=== PATIENT | male | born 1960 | race Hispanic/Latino ===

== ENCOUNTER → 2023-07-17 13:39 | Outpatient (REF) | payer OTHER, SELFPAY | LOC: HWRAD 13:39 | PROVIDERS: ATTENDING PHYSICIAN Student in an Organized Health Care Education/Training Program | DX: R60.0 Localized edema (principal) | CPT/HCPCS: 93970 ==

== ENCOUNTER 2023-08-24 06:35 | Day surgery (SDC) | payer OTHER, SELFPAY ==
[2023-08-23 07:53] VITALS: BMI 38.1
[2023-08-24] VITALS (9 sets, daily range): BP systolic 126–143; BP diastolic 75–101; BMI 38.1
[2023-08-24] MEDS: TYLENOL 1000 MG PO (12:24)
[2023-08-24] MEDS: CELEBREX 200 MG PO (12:24)
[2023-08-24] MEDS: NORMOSOL-R 1000 IV (12:25)
== END 2023-08-24 15:35 | disposition home or self-care (01) ==
LOC: SDS 06:35
PROVIDERS: ATTENDING PHYSICIAN Orthopaedic Surgery; FAMILY PHYSICIAN Family Medicine; OTHER PHYSICIAN Student in an Organized Health Care Education/Training Program
DX: S83.232A Complex tear of medial meniscus, current injury, left knee, initial encounter (principal); S83.272A Complex tear of lateral meniscus, current injury, left knee, initial encounter; X50.0XXA Overexertion from strenuous movement or load, initial encounter; X50.9XXA Other and unspecified overexertion or strenuous movements or postures, initial encounter; Y93.H1 Activity, digging, shoveling and raking
CPT/HCPCS: 29880; 36415; 93005

== ENCOUNTER → 2023-11-30 10:46 | Outpatient (REF) | payer OTHER, SELFPAY | LOC: HWRAD 10:46 | PROVIDERS: ATTENDING PHYSICIAN Student in an Organized Health Care Education/Training Program | DX: R59.0 Localized enlarged lymph nodes (principal) | CPT/HCPCS: 74177; Q9967 ==

== ENCOUNTER → 2024-01-04 06:53 | Outpatient (REF) | payer OTHER, SELFPAY | LOC: RCS 06:53 | PROVIDERS: ATTENDING PHYSICIAN Internal Medicine Cardiovascular Disease; FAMILY PHYSICIAN Student in an Organized Health Care Education/Training Program | DX: I10 Essential (primary) hypertension (principal); Z86.79 Personal history of other diseases of the circulatory system | CPT/HCPCS: 93306 ==

== ENCOUNTER → 2024-02-22 11:07 | Outpatient (REF) | payer OTHER, SELFPAY | LOC: RAD 11:07 | PROVIDERS: ATTENDING PHYSICIAN Student in an Organized Health Care Education/Training Program | DX: I87.2 Venous insufficiency (chronic) (peripheral) (principal) | CPT/HCPCS: 93922; 93925 ==

== ENCOUNTER 2024-05-15 23:21 | Inpatient (IN) | payer OTHER, SELFPAY ==
[2024-05-15] VITALS (9 sets, daily range): BP systolic 114–154; BP diastolic 63–117
[2024-05-15 19:10] LABS: Glucose - Point of Care 111 mg/dl (70-99)
--- NOTE | 2024-05-15 19:38 | ED.GENMED ---
History of Present Illness
General
Chief Complaint: Change in Mental Status
Source: patient
Exam Limitations: none
Time Seen by Provider: 05/15/24 19:18
Nursing documentation reviewed up to this point in time: agreed with
History of Present Illness
History of Present Illness:
Patient presents to ED secondary to 5-day history of continual confusion, slow speech, and decreased appetite, after increasing his dose of Mounjaro medication, which started 3 months ago secondary to diabetes. Patient has lost approximately 20
pounds of weight since then. Denies headache. Denies dizziness. Denied blurred vision. Denies loss of sensation or weakness. Denies chest pain. Denies abdominal pain. Patient has had intermittent bouts of diarrhea and constipation since
starting new medication.
Past History
Past History
ED Past Medical History: GERD, HTN, Other (Rheumatoid arthritis) and Other (Sleep apnea)
ED Past Surgical History: Other (Toenail removal)
Social History
Tobacco: Non-smoker
Alcohol: Occasional
Drug: None
Personal:
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
Review of Systems
Review of Systems
Allergies reviewed?: Yes
All Other Systems: ROS reviewed and negative except as documented in HPI and ROS
Constitutional: Reports no symptoms
EENT: Reports no symptoms
Respiratory: Reports no symptoms
Cardiac: Reports no symptoms
ABD/GI: Reports no symptoms
Musculoskeletal: Reports no symptoms
Skin: Reports no symptoms
Neurological: Reports weakness and other (confusion)
Phy Exam
Physical Exam
Physical Exam:
Physical Exam
General: no apparent distress, not acutely ill. afebrile
Head: nc/at. eomi
Neck: supple. no meningeal signs.
Heart: s1/s2 regular rate and rhythm, no murmur.
Lungs: no acute respiratory distress. clear bilaterally
Abdomen: normal bowel sounds. not tender.
Neuro: alert and oriented x 3. no focal sensory/motor deficit. normal speech
Skin: no rash
Psychiatric: well kept. interactive and cooperative
Extremities: no edema. no calf tenderness.
Course
Orders/Labs/Results
Orders:
Orders
05/15/24 19:32
CT Head W/o Iv Contrast Urgent
Comment:
Reason For Exam: mental status change with slowed speech
05/15/24 19:33
Electrocardiogram (*1) Urgent
Reason for Study: TIA/Stroke
EKG- Treatment ONCE
Urinalysis Reflex To Culture Urgent
Date Specimen was Collected: 05/15/24
Time Specimen was Collected: 19:44
05/15/24 19:50
Basic Metabolic Panel Urgent
TSH Urgent
05/15/24 20:25
Complete Blood Count/No Diff Urgent
05/15/24 20:58
0.9% Sodium Chloride 1000 ml [Nss] 1,000 ml IV BOLUS
05/15/24 22:00
0.9% Sodium Chloride 1000 ml [Nss] 1,000 ml IV 100 mls/hr
05/15/24 22:22
Ammonia Urgent
Potassium Urgent
05/15/24 22:38
Admit/Transfer Patient As Directed
Co-Sign Provider:
Level of Care: Inpatient admission
Assign to:: Telemetry
Physician / Group: Dillon
Diagnosis: Acute TME, YAMILETH
Reason for Telemetry: Arrhythmia
Date to Stop Telemetry: 05/18/24
Time to Stop Telemetry: 11:00
Reason for Hospitalization: Acute TME, YAMILETH
Expected length of stay greater than two midnights?: Yes
ELOS- Estimated Length of Stay in days: 2
I certify the patient meets the requirements for IP care: Yes
05/15/24 22:39
PRN Pain Medication Management As Directed
May give lesser potent ordered pain med per pt: Yes
preference::
Protocol:: Medication orders for pain may be administered in a
manner that supports deferring to patient preference
when the pt is:
- Requesting an ordered lesser potent pain medication.
Least to most potent pain medications are defined
as: acetaminophen < NSAID < tramadol < opioids
(morphine, oxycodone, hydromorphone).
- Requesting a lesser dose of the same medication IF
ORDERED.
- Requesting a less intrusive route of administration
if both routes are prescribed by the provider (PO <
IV).
05/15/24 22:40
Code Status As Directed
Resuscitation Status: Full Code
05/15/24 23:00
Flush (0.9% Sodium Chloride) [Flush (Nss)] See Dose Instructions IV PER PROTOCOL
05/18/24 11:00
DC Protocol for Telemetry ONCE
Abnormal Lab Results
05/15/24 05/15/24 05/15/24
19:09 19:50 20:25
WBC 13.1 H 10^3/uL
(4.8-10.8)
Hgb 18.2 H g/dL
(13.0-18.0)
MCH 33.2 H pg
(27.0-31.0)
Potassium
Carbon Dioxide 20 L mmol/L
(22-30)
BUN 61 H mg/dl
(9-20)
Creatinine 1.9 H mg/dL
(0.7-1.3)
Glucose 116 H mg/dl
(70-99)
Ammonia
POC Glucose 111 H mg/dl
(70-99)
05/15/24
22:22
WBC
Hgb
MCH
Potassium 2.9 L mmol/L
(3.5-5.1)
Carbon Dioxide
BUN
Creatinine
Glucose
Ammonia 48 H umol/L
(930)
POC Glucose
05/15/24 20:25
05/15/24 22:22
Vital Signs
Initial and Last Documented VS:
Initial Vital Signs
Temp Pulse Resp BP Pulse Ox
99.2 F 98 18 114/94 98
05/15/24 19:09 05/15/24 19:09 05/15/24 19:09 05/15/24 19:09 05/15/24 19:09
Last Documented Vital Signs
Temp Pulse Resp BP Pulse Ox
99.2 F 82 20 125/98 99
05/15/24 19:09 05/15/24 21:30 05/15/24 21:30 05/15/24 21:09 05/15/24 21:30
MDM/Problems Addressed
MDM/Problems Addressed:
CT head: No acute findings.
Blood work reveals acute renal failure, likely secondary to poor oral intake, likely due to side effects from Mounjaro. As patient continues to have intermittent confusion, patient will be admitted for further evaluation, including continual
hydration.
*Critical Care Note
Total Time (30-74mins, 75-104mins- exclusive of procedures): Not Applicable
ED Attending Note
-
Portions of this chart may have been created with voice recognition software.� Occasional wrong word or��sound alike� substitutions may have occurred due to the inherent limitations of voice recognition software.
Discharge Plan
Departure
Patient Disposition: Admit
Date of Disposition: 05/15/24
Time of Disposition: 21:48
Admit to: Telemetry
Presentation/result/management discussed w/ accepting MD/DO: Hospitalist
Discharge Problem:
Altered mental status, Acute renal failure (ARF), Dehydration
Prescriptions:
No Action
losartan-hydrochlorothiazide 100-12.5 mg Tablet
1 tab PO DAILY
Mounjaro 7.5 mg/0.5 mL Pen Injector
7.5 mg SC QWEEK
Referrals:
Kelsie Ray PA-C [Family Provider] -
Interventions
Interventions:
*Risk Screen - Suicide Last Done: 05/15/24 19:09
*General Assessment Last Done: 05/15/24 19:09
*Neglect/Abuse Screening Last Done: 05/15/24 19:09
ED- Fall Risk Assessment Last Done: 05/15/24 19:19
*ED COVID-19 Vaccine History Last Done: 05/15/24 19:09
ED- Pulmonary Assessment Last Done: 05/15/24 19:19
ED- Neurological Assessment Last Done: 05/15/24 19:19
ED- Cardiac Assessment Last Done: 05/15/24 19:19
Discharge Date and Time
Print Language: KITTITIAN
[2024-05-15 20:25] LABS: Blood Urea Nitrogen 61 mg/dl (9-20); Calcium 8.7 mg/dl (8.4-10.2); Carbon Dioxide 20 mmol/L (22-30); Chloride 103 mmol/L (98-107); Glucose 116 mg/dl (70-99); Sodium 135 mmol/L (135-145); eGFR 39.15
[2024-05-15 20:43] LABS: Hematocrit 49.3 % (39.0-52.0); Hemoglobin 18.2 g/dL (13.0-18.0); Mean Corp Hgb Conc. 36.9 g/dL (33.0-37.0); Mean Corpuscular Hgb 33.2 pg (27.0-31.0); Mean Corpuscular Volume 89.8 fL (80.0-94.0); Platelet Count 249 10^3/uL (130-400); Red Blood Cell Count 5.49 10^6/uL (4.70-6.10); Red Cell Dist. Width 13.2 % (11.5-14.5); White Blood Cell Count 13.1 10^3/uL (4.8-10.8)
[2024-05-15] MEDS: NSS 1000 IV ×2 (21:26→21:30)
--- NOTE | 2024-05-15 22:42 | HPS.HSE ---
Family Physician
-
Family Physician: Kelsie Ray PA-C
Chief Complaint
-
Confusion, Diarrhea
History of Present Illness
Patient is a 63y M with PMH significant for pre-diabetes, hypertension and LUNDBERG who presents to ED for evaluation of confusion. History obtained from patient and his family at the bedside. Patient notes that he was told he was 'pre-diabetic'
late last year. He tried metformin but developed GI side effects. He was switched to Mounjaro about 2 months ago and tolerated the 2.5mg and 5mg doses without any issues. About 1 week ago he took his first dose of 7.5mg. Following this ghe
developed severe, watery, 'projectile' diarrhea. Patient reports myriad episodes per day. He has had very poor appetite with little PO intake. Family notes that he has remained in bed for the past 2 days.
Today his family noted that he seemed very confused. He did not know what a doorknob was. He had some slurring speech. He had difficulty finding words.
Patient was brought to the ED for further evaluation.
Medical History
Past Medical History
Past Medical History: Reports Other
Additional Past Medical History:
Hypertension
DM-II
Obesity
LUNDBERG
BPH
Rheumatoid Arthritis
Past Surgical History: Reports Other
Additional Past Surgical History:
Left Knee Arthroscopy
Social History
Tobacco: Non-smoker
Alcohol: None
Drug: None
Personal:
Living: With Family
Family History
Family History: Not pertinent
Allergies / Home Medications
Allergies reflects when Allergies were last updated in [facility].
Home Medications with original date entered in [facility]
Allergy/Medication List:
Allergies
Allergy/AdvReac Type Severity Reaction Status Date / Time
No Known Allergies Allergy Verified 05/15/24 19:14
Home Medications
losartan 100 mg-hydrochlorothiazide 12.5 mg tablet 1 tab PO DAILY 08/22/23
tirzepatide 7.5 mg/0.5 mL subcutaneous pen injector (Mounjaro) 7.5 mg SC QWEEK 05/15/24
Review of Systems
-
History Source: Patient and Family
A 12 point ROS was completed and negative except as noted: Yes
Constitutional: Reports Fatigue; Denies Fever or Chills
EENT: Denies Sore Throat
Respiratory: Denies Cough or Trouble Breathing
Cardiac: Denies Chest Pain or Palpitations
Abdomen/GI: Reports Diarrhea and Anorexia; Denies Abdominal Pain, Nausea, Vomiting or Bloody Stools
: Reports Other (Decreased urine output.); Denies Dysuria or Frequency
Musculoskeletal: Denies Edema
Neurological: Denies Dizzy or Headache
Psych: Reports Other (Confusion.); Denies Depression or Anxiety
Physical Exam
Vital Signs
Vital Signs
Temp Pulse Resp BP Pulse Ox
99.2 F 82 20 125/98 99
05/15/24 19:09 05/15/24 21:30 05/15/24 21:30 05/15/24 21:09 05/15/24 21:30
Physical Exam
General: Other (63y M in no acute distress.)
HEENT: Other (Dry MM. Thick neck.)
Respiratory: Clear; No Wheezes, Rales or Rhonchi
Cardiac: S1/S2 and Regular Rhythm; No Murmur
GI: Soft, Non Tender, Non Distended and Normal Bowel Sounds
Musculoskeletal: No Clubbing, No Cyanosis and No Edema
Neuro: Awake, Alert, Nonfocal/grossly intact and Other (Slow speech. Somewhat confused. Poor recall of recent events.)
Laboratory Results
-
05/15/24 20:25
Laboratory Results
Total Bilirubin Cancelled 05/15/24 19:50
AST Cancelled 05/15/24 19:50
ALT Cancelled 05/15/24 19:50
Alkaline Phosphatase Cancelled 05/15/24 19:50
Impression/Plan
-
A/P: Patient is a 63y M with PMH significant for DM-II and hypertension who presents to ED for evaluation of confusion. Recent diarrhea.
Acute TME
- Admit for further evaluation and treatment.
- Suspect this is secondary to YAMILETH / volume contraction.
- Hold further Mounjaro.
- IVF support and follow for improvement in metabolic anomalies.
- Follow clinically for improvement.
- CT head in the ED was unremarkable.
- Would check MRI in the AM to rule out stroke given word-finding difficult - though systemic / metabolic etiology seems more likely.
YAMILETH
- SCr = 1.9 compared to prior baseline of 0.8.
- Likely secondary to GI losses / volume losses + ARB.
- Stop further Mounjaro.
- Hold ARB / HCT for now.
- IVF support overnight.
- Follow for improvement in labs / lytes.
Diarrhea
- Likely secondary to Mounjaro.
- Hold further doses as noted above.
- Follow for clinical improvement.
- Check stool studies for completeness.
Benign Hypertension
- Holding losartan / HCT acutely as noted above.
DM-II
- Hold Mounjaro.
- Follow glucose and cover with SSI as needed.
- Update A1C.
LUNDBERG / Cirrhosis
- Check ammonia level for any evidence of hepatic encephalopathy contributing to current presentation.
Obesity due to excess calories
- Affects all aspects of care.
- Encourage healthy diet and increased activity with goal of weight loss.
DVT Prophylaxis: Subcut Heparin
Code Status: Full
[2024-05-15 22:55] LABS: Potassium 2.9 mmol/L (3.5-5.1)
[2024-05-15 22:56] LABS: Ammonia 48 umol/L (9-30)
[2024-05-15 23:19] LABS: ALT (SGPT) 18 U/L (0-50); AST (SGOT) 19 U/L (17-59); Albumin 3.8 g/dl (3.5-5.0); Alkaline Phosphatase 113 U/L (38-126); Direct Bilirubin 0.4 mg/dl (0.0-0.4); Total Bilirubin 1.2 mg/dl (0.2-1.3); Total Protein 7.5 g/dl (6.3-8.2)
[2024-05-16] VITALS (11 sets, daily range): BP systolic 119–149; BP diastolic 63–86; PULSE 81–100; O2SAT 96; BMI 33.9
[2024-05-16] MEDS: KCL 40 MEQ PO ×2 (00:52→09:02)
[2024-05-16] MEDS: LR 1000 IV ×3 (01:36→19:01)
--- NOTE | 2024-05-16 02:04 | PTCARENOTE ---
Received pt from ED @ 0130. Pt pulled over from stretcher to bed. AOOx2, disoriented to time. Pt with slight confusion and word finding difficulty. Bed alarm in place. Oriented to room, call bailey and plan of care.
[2024-05-16 07:35] LABS: Glucose - Point of Care 88 mg/dl (70-99)
[2024-05-16] MEDS: NOVOLOG FLEXPEN-LOW RESISTANCE SC ×3 (07:44→17:14)
[2024-05-16 08:08] LABS: Hematocrit 43.9 % (39.0-52.0); Hemoglobin 16.3 g/dL (13.0-18.0); Mean Corp Hgb Conc. 37.1 g/dL (33.0-37.0); Mean Corpuscular Hgb 33.3 pg (27.0-31.0); Mean Corpuscular Volume 89.6 fL (80.0-94.0); Mean Platelet Volume 10.2 fL (7.4-10.4); Platelet Count 220 10^3/uL (130-400); Red Cell Dist. Width 13.2 % (11.5-14.5); White Blood Cell Count 13.4 10^3/uL (4.8-10.8)
[2024-05-16] MEDS: LOW STRENGTH ASPIRIN 81 MG PO (08:08)
[2024-05-16] MEDS: HEPARIN 5000 UNITS SC ×3 (08:08→23:36)
[2024-05-16 08:36] LABS: Blood Urea Nitrogen 43 mg/dl (9-20); Calcium 8.4 mg/dl (8.4-10.2); Carbon Dioxide 18 mmol/L (22-30); Chloride 106 mmol/L (98-107); Estimated Creatinine Clearance 92 ml/min; Glucose 97 mg/dl (70-99); Potassium 3.2 mmol/L (3.5-5.1); Sodium 138 mmol/L (135-145); eGFR > 60.00
[2024-05-16 09:43] LABS: Glycohemoglobin (HgbA1c) 5.4 % (4.0-5.6)
--- NOTE | 2024-05-16 10:52 | W.PN.HOSP.TC ---
Today's Communication/Plan
-
MRI brain
Lactulose for elevated ammonia level
continue IVF
holding ARB/HCTZ
PT/OT
Assessment / Plan
Assessment / Plan
Assessment:
Acute TME
- Suspected related to YAMILETH / volume contraction.
- Hold further Mounjaro.
- IVF support and follow for improvement in metabolic anomalies.
- Follow clinically for improvement.
- CT head in the ED was unremarkable. MRI pending
- Ammonia level elevated; lactulose added
YAMILETH
- SCr = 1.9 compared to prior baseline of 0.8.
- Likely secondary to GI losses / volume losses + ARB.
- Stop further Mounjaro.
- Hold ARB / HCT for now.
- IVF continues
- BMP improving
Diarrhea
- Likely secondary to Mounjaro.
- Hold further doses as noted above.
- Follow for clinical improvement.
- Check stool studies for completeness.
Hypokalemia from diarrhea
- replacement ordered
Leukocytosis
- check UA
- if febrile, expand workup with CXR and Bcx
Benign Hypertension
- Holding losartan/HCT acutely as noted above.
DM-II
- Hold Mounjaro.
- Follow glucose and cover with SSI as needed.
- A1c is 5.4%
- f/u PCP to alternative management
LUNDBERG / Cirrhosis
- Ammonia level elevated; lactulose added for mild hepatic encephalopathy
Obesity due to excess calories
- Affects all aspects of care.
- Encourage healthy diet and increased activity with goal of weight loss.
DVT Prophylaxis: SC Heparin
Code Status: Full
Anticipated Discharge: Within 24 hours
Subjective/Interval History
-
Date of Service: May 16, 2024
resting comfortably, no complaints presently
Objective Data
-
Labs:
Laboratory Results
05/15/24 05/16/24 05/16/24
22:22 07:42 07:43
WBC 13.4 H
Hgb 16.3
Hct 43.9
Plt Count 220
Sodium 138
Potassium 2.9 L 3.2 L
Chloride 106
Carbon Dioxide 18 L
BUN 43 H
Creatinine 1.1
Glucose 97
Calcium 8.4
Total Bilirubin 1.2
AST 19
ALT 18
Alkaline Phosphatase 113
Vital Signs:
Vital Signs
Temp Pulse Resp BP Pulse Ox
97.8 F 80 20 136/73 99
05/16/24 07:30 05/16/24 07:30 05/16/24 07:30 05/16/24 07:30 05/16/24 07:30
I&O
05/15/24 05/16/24 05/17/24
06:59 06:59 06:59
Intake Total 480 / 480
Output Total 300 / 300
Balance 180 / 180
Physical Exam
-
General: No Apparent Distress
HEENT: Normocephalic and Atraumatic
Respiratory: Negative Wheezes
Cardiac: Regular Rhythm and S1/S2
GI: Soft
Musculoskeletal: No Edema
Neuro: AO x 3
Hematologic / Lymphatic: No Lymphadenopathy
Psych: Calm
Data Reviewed
-
Total Time Spent with Patient (in minutes): 41
Labs: Labs Reviewed by me
[2024-05-16 12:11] LABS: Glucose - Point of Care 116 mg/dl (70-99)
[2024-05-16] MEDS: DUPHALAC/CHRONULAC 20 GRAMS PO ×2 (12:17→20:36)
--- NOTE | 2024-05-16 12:44 | PTOTSP ---
Speech Therapy Evaluation:
Pt presents with oropharyngeal swallow that is WFL at bedside. Pt demonstrated adequate oral phase and no overt s/sx of aspiration with thin liquids or regular solids. WBC elevated. No chest imaging completed thus far. Pt passed 3oz swallow screen.
Pt does remain at increased risk of post prandial aspiration given esophageal hx including GERD and Sch[place].
Recommend:
1. Continue regular solids and thin liquids
2. Medications whole with thins
3. General aspiration and reflux precautions
4. GETTERER to follow (likely brief) for swallowing to monitor tolerance of diet and to determine if further speech/language/cognitive assessment warranted pending results of brain MRI.
[2024-05-16 17:03] LABS: Glucose - Point of Care 92 mg/dl (70-99)
--- NOTE | 2024-05-16 19:14 | PTCARENOTE ---
patient arrived from ED on 2 L NC. VSS. MEDELLIN. Fine crackles with expiratory wheezing upon assessment. Patient denies pain. x 1 assist with RW. Dual skin check pending. Oncoming RN updated. Telemetry placed. Reading NSR--strip printed and placed in
chart. Patient oriented to room. Bed in lowest position. Bed alarm on. Droplet precautions maintained. Call bailey and personal belongings within reach.
[2024-05-16] MEDS: TUMS CHEWABLE TABLET 200 MG PO (21:16)
[2024-05-16 21:28] LABS: Glucose - Point of Care 108 mg/dl (70-99)
[2024-05-17] VITALS (8 sets, daily range): BP systolic 135–162; BP diastolic 69–82; PULSE 85–90; O2SAT 98; BMI 33.9
[2024-05-17] MEDS: LR 1000 IV (03:13)
[2024-05-17 06:49] LABS: Hematocrit 40.5 % (39.0-52.0); Mean Corpuscular Hgb 33.3 pg (27.0-31.0); Mean Platelet Volume 9.9 fL (7.4-10.4); Platelet Count 205 10^3/uL (130-400); Red Cell Dist. Width 13.4 % (11.5-14.5); White Blood Cell Count 11.8 10^3/uL (4.8-10.8)
[2024-05-17 06:59] LABS: Ammonia 70 umol/L (9-30)
[2024-05-17 07:19] LABS: Blood Urea Nitrogen 22 mg/dl (9-20); Calcium 8.8 mg/dl (8.4-10.2); Carbon Dioxide 21 mmol/L (22-30); Chloride 108 mmol/L (98-107); Estimated Creatinine Clearance 112 ml/min; Glucose 117 mg/dl (70-99); Potassium 3.2 mmol/L (3.5-5.1); Sodium 138 mmol/L (135-145); eGFR > 60.00
[2024-05-17 07:35] LABS: Glucose - Point of Care 88 mg/dl (70-99)
[2024-05-17] MEDS: NOVOLOG FLEXPEN-LOW RESISTANCE SC ×2 (08:09→17:15)
[2024-05-17] MEDS: HEPARIN 5000 UNITS SC ×3 (09:01→23:12)
[2024-05-17] MEDS: LOW STRENGTH ASPIRIN 81 MG PO (09:01)
[2024-05-17] MEDS: DUPHALAC/CHRONULAC 20 GRAMS PO (09:01)
[2024-05-17] MEDS: KCL 40 MEQ PO (09:01)
--- NOTE | 2024-05-17 10:32 | W.PN.HOSP.TC ---
Today's Communication/Plan
-
GI eval; continue lactulose
monitor BMP
rehab evalutions
Assessment / Plan
Assessment / Plan
Assessment:
Acute TME
- Suspected related to YAMILETH/volume contraction, acute HE
- Hold further Mounjaro.
- IVF support and follow for improvement in metabolic anomalies.
- Follow clinically for improvement - has improved
- CT head in the ED was unremarkable. MRI without CVA.
- Ammonia level elevated; lactulose added. GI consulted.
YAMILETH
- SCr = 1.9 compared to prior baseline of 0.8.
- Likely secondary to GI losses / volume losses + ARB.
- Stop further Mounjaro.
- Hold ARB / HCT for now.
- BMP improved
Diarrhea
- Likely secondary to Mounjaro.
- Hold further doses as noted above.
- Follow for clinical improvement.
- Check stool studies for completeness.
Hypokalemia from diarrhea
- replacement ordered
Leukocytosis
- check UA
- if febrile, expand workup with CXR (currently no symptoms) and Bcx
Benign Hypertension
- Holding losartan/HCT acutely as noted above.
DM-II
- Hold Mounjaro.
- Follow glucose and cover with SSI as needed.
- A1c is 5.4%
- f/u PCP for re-evaluation/alternative management
LUNDBERG / Cirrhosis on CT
- Ammonia level elevated; lactulose added. GI consulted.
- OP eval for Fibroscan
Obesity due to excess calories
- Affects all aspects of care.
- Encourage healthy diet and increased activity with goal of weight loss.
DVT Prophylaxis: SC Heparin
Code Status: Full
Dispo: per PT/OT. Acute rehab. PMR consulted.
Anticipated Discharge: 24 - 48 hours
Subjective/Interval History
-
Date of Service: May 17, 2024
feels more alert today
denies any new complaints
Objective Data
-
Labs:
Laboratory Results
05/17/24
06:35
WBC 11.8 H
Hgb 15.0
Hct 40.5
Plt Count 205
Sodium 138
Potassium 3.2 L
Chloride 108 H
Carbon Dioxide 21 L
BUN 22 H
Creatinine 0.9
Glucose 117 H
Calcium 8.8
Vital Signs:
Vital Signs
Temp Pulse Resp BP Pulse Ox
98.5 F 78 18 137/78 97
05/17/24 07:30 05/17/24 07:30 05/17/24 07:30 05/17/24 07:30 05/17/24 07:30
I&O
05/16/24 05/17/24 05/18/24
06:59 06:59 06:59
Intake Total 480 / 480 2380 / 2380
Output Total 300 / 300 500 / 500
Balance 180 / 180 1880 / 1880
Physical Exam
-
General: No Apparent Distress
HEENT: Normocephalic and Atraumatic
Respiratory: Negative Wheezes
Cardiac: Regular Rhythm and S1/S2
GI: Soft and Nontender
Genito-urinary: No Costovertebral Tender
Musculoskeletal: No Edema
Neuro: AO x 3
Psych: Calm
Data Reviewed
-
Total Time Spent with Patient (in minutes): 44
Labs: Labs Reviewed by me
[2024-05-17 11:51] LABS: Glucose - Point of Care 157 mg/dl (70-99)
[2024-05-17] MEDS: NOVOLOG FLEXPEN-LOW RESISTANCE 1 UNITS SC (12:00)
[2024-05-17 14:31] LABS: Urine Albumin 1+ (Neg - Trace); Urine Bilirubin Negative (Negative); Urine Character Clear (Clear); Urine Color Yellow; Urine Glucose Negative (Negative); Urine Ketone Negative (Negative); Urine Leukocyte Negative (Negative); Urine Nitrite Negative (Negative); Urine Occult Blood Negative (Negative); Urine Specific Gravity 1.015 (<1.030); Urine Urobilinogen Negative (Neg - 1+)
--- NOTE | 2024-05-17 14:43 | CON.GI ---
Addendum entered and electronically signed by Dayami Mata MD 05/17/24 17:10:
I personally performed a history and physical exam of the patient and discussed management with the resident. I reviewed the resident's note and agree with the documented findings and plan of care HPI/CC. 63-year-old male past medical history of
metabolic associated static liver disease, diabetes presenting with diarrhea and altered mental status after increasing his Mounjaro. Reviewing the chart, he had a CT in November 2023 which did show a nodular liver. There was concerns that perhaps
he had cirrhosis. Of note, his platelets were normal. Coags were not checked. His ammonia level was 70 on exam he has no asterixis. His confusion did improve. He is on lactulose but does have underlying diarrhea for the last few days. I will
decrease his lactulose to once a day with goal bowel movements of 3 times a day. Ultimately, in regards to his liver, we will plan for FibroScan outpatient as well as full liver workup to ensure no other etiology besides metabolic associated static
liver disease as etiology. I am not sure his confusion could be related to cirrhosis especially given the normal platelets and Mounjaro should also not cause confusion. Perhaps related to acute kidney injury and volume contraction. The Mounjaro
may be the etiology of the diarrhea. However, we will check full stool studies to ensure no infection given the acuity. I have given the patient an appointment with me May 29 at 4 PM for further workup for his liver disease as he does not
currently have a GI appointment scheduled. Discussed with hospitalist.
Original Note:
Consultation
-
Date/Time Consultation Requested: 03/16/25
Date/Time Consultation Performed: 03/16/25
Requesting Provider: Pillo Martinez MD
Performing Provider: Elzbieta Mata MD
Reason for Consultation: Encephalopaty
Medical History
Chief Complaint / HPI
Chief Complaint: Confusion
History of Present Illness:
The patient is a 63 year old male with a PMH of pre-diabetes, HTN, RA (in remission) and LUNDBERG who presented to ER on 05/15/2024 for an evaluation of confusion. The patient was started on a new medication for his diabetes about 2 months ago and its
dose elevated to 7.5 mg recently which he received the last dose last week and following he had episodes of watery diarrhea. He denied vomiting, nausea and abdominal pain during this period. At admission he was obtained head CT and brain MRI which
was not significant for acute cranial events. The patient reports that he was diagnosed with LUNDBERG about 20 years ago and he was not going for follow up in last few years. He was not aware that his liver problem might progressed to cirrhosis which
was found on his chart on Abd CT report in 2023.Reports he had his last colonoscopy one year ago and a poly was taken and recommended repeating it in 5 years.
Past Medical History
Past Medical History: GERD (hx of GERD (No complainings for years) ), HTN, NIDDM and Other (LUNDBERG/Cirrhosis? , RA ( in remission), BPH )
Past Surgical History: Other (Left Knee Arthroscopy)
Social History
Tobacco: Non-Smoker
Alcohol: None
Drug: None
Personal:
Living: With Family
Employment: Employed
Family History
Family History: Other (Mother: Pancreatic cancer )
Allergies / Home Medications
Allergy/AdvReac Type Severity Reaction Status Date / Time
No Known Allergies Allergy Verified 05/15/24 19:14
�Medication �Instructions �Recorded
losartan 100 1 tab PO DAILY Blood Pressure 08/22/23
mg-hydrochlorothiazide 12.5 mg
tablet
tirzepatide 7.5 mg/0.5 mL 7.5 mg SC QWEEK Diabetes 05/15/24
subcutaneous pen injector
(Jose Martin)
Review of Systems
-
History Source: Patient
EENT: Reports No Symptoms
Respiratory: Reports No Symptoms
Cardiac: Reports No Symptoms
Abdomen/GI: Reports Diarrhea
: Reports No Symptoms
Musculoskeletal: Reports No Symptoms
Skin: Reports No Symptoms
Neurological: Reports No Symptoms
Vital Signs
Temp Pulse Resp BP Pulse Ox
98.6 F 79 18 141/69 96
05/17/24 11:09 05/17/24 11:09 05/17/24 11:09 05/17/24 11:09 05/17/24 11:09
Physical Exam
Exam
General: Well Developed, Well Nourished, No Apparent Distress and Comfortable
HEENT: Normocephalic and Anicteric
Respiratory: Clear
Cardiac: S1/S2 and Regular Rhythm
GI: Soft, Non Tender and Non Distended
Musculoskeletal: No Clubbing and No Edema
Skin: Warm and Dry
Neuro: Awake, Alert, Oriented, AO x 3 and Nonfocal/Grossly Intact
Psych: Calm
Results
WBC 11.8 10^3/uL (4.8-10.8) H 05/17/24 06:35
Hgb 15.0 g/dL (13.0-18.0) 05/17/24 06:35
Hct 40.5 % (39.0-52.0) 05/17/24 06:35
MCV 90.0 fL (80.0-94.0) 05/17/24 06:35
Plt Count 205 10^3/uL (130-400) 05/17/24 06:35
Sodium 138 mmol/L (135-145) 05/17/24 06:35
Potassium 3.2 mmol/L (3.5-5.1) L 05/17/24 06:35
Chloride 108 mmol/L (98-107) H 05/17/24 06:35
Carbon Dioxide 21 mmol/L (22-30) L 05/17/24 06:35
BUN 22 mg/dl (9-20) H 05/17/24 06:35
Creatinine 0.9 mg/dL (0.7-1.3) 05/17/24 06:35
Calcium 8.8 mg/dl (8.4-10.2) 02/14/25 06:35
Total Bilirubin 1.2 mg/dl (0.2-1.3) 05/15/24 22:22
AST 19 U/L (17-59) 05/15/24 22:22
ALT 18 U/L (0-50) 05/15/24 22:22
Alkaline Phosphatase 113 U/L (38-126) 05/15/24 22:22
Diagnostic Image Results:
ABD CT 11/30/23
IMPRESSION:
1. No pathologic lymphadenopathy is appreciated.
2. Nodular contour of the liver, suggestive of cirrhosis in the correct clinical setting. No focal hepatic mass is demonstrated.
3. Significant enlargement of the prostate gland.
4. Small hiatal hernia.
Prior GI Procedures:
EGD: 03/24/11
Findings:
The examined duodenum was normal. The entire examined stomach was
normal. The cardia and gastric fundus were normal on retroflexion. LA
Grade B (one or more mucosal breaks greater than 5 mm, not extending
between the tops of two mucosal folds) esophagitis with no bleeding was
found at the gastroesophageal junction. Biopsies were taken with a cold
forceps for histology. A Schatzki ring (acquired) was found at the
gastroesophageal junction. A guidewire was placed and the scope was
withdrawn. A 51 Fr Savary dilator was passed over the guidewire with no
resistance. This was successfully dilated.
Impression: - Normal examined duodenum.
- Normal stomach.
- LA Grade B reflux esophagitis. This was biopsied.
- Schatzki ring. Dilated.
Recommendation: - Use a proton pump inhibitor PO BID indefinitely.
- Follow an antireflux regimen.
- Weight loss is advised.
- Return for problems swallowing.
Colonoscopy: Per patient report, had a recent colonoscopy one year ago and had a polypectomy / recommended to repeat another one in 5 years
Assessment / Plan
-
Assessment
Impression: The patient is a [age] year old male who admitted to the hospital for the confusion. His recently was started on a new diabetes medication 'Mounjaro' and the dose was increased it 7.5 mg which he received it last week. Following he
developed a projectile watery diarrhea and some deterioration for last 2 days before hospital admission. At admission his head CT and brain MRI result was not remarkable for any cranial event. His lad studies showed low K level to 2.9 and elevated
creatinine level to 1.9 and BUN 61 and ammonia to 48. He was consulted to GI team for ongoing diarrhea and possible hepatic encephalopathy related his having LUNDBERG/possible cirrhosis.
Problem List
TME
LUNDBERG/?Cirrhosis
Diarrhea
NIIDM
YAMILETH
HTN
RA
Obesity
#LUNDBERG/?Cirrhosis
-Hx of LUNDBERG for 20 years / not clear if he has follow up with a physician
-ABD CT in 12/25: Nodular contour of the liver, suggestive of cirrhosis in the correct clinical setting-
-BUN 22 N and elevated Ammonia to 70 (at admission 48)-No need to repeat daily -- Patient is not confused any more -his TME is not likely due elevated Ammonia
-INR was ordered
-Follow up CMP, CBC LFT daily
-Fiber scan is recommend for a clear diagnosis of cirrhosis
#Diarrhea possibly secondary to Mounjaro
-Stop Mounjaro
-Stool studies were ordered
-Stop Lactulose
-Follow up CMP, CBC daily
We will follow the patient as GI team
-
-
Thank you for consultation and allowing me to participate in the patient's care. Please call the train operations supervisor GI physician during the after hours with any questions or concerns.
[2024-05-17] MEDS: KCL 20 MEQ PO (14:44)
--- NOTE | 2024-05-17 16:39 | CM ---
CM reviewed chart, patient seen bedside, initial assessment completed. Patient resides with his , daughter, and son, in a multiple story home, two steps to enter. Patient is independent with ADLs/IADLs, denies use of DME, VN, or SNF. Patient PCP
Kelsie Ray, pharmacy [facility], confirms prescription coverage. Patient declining VN at this time, reports he is employed, reports his daughter works from home so someone is always home. CM will continue to follow for all discharge planning
needs.
Plan; home with family.
[2024-05-17 16:44] LABS: Glucose - Point of Care 139 mg/dl (70-99)
[2024-05-17 22:50] LABS: Glucose - Point of Care 132 mg/dl (70-99)
[2024-05-18 03:00] VITALS: BP 131/71
[2024-05-18 06:19] VITALS: BMI 34.4
[2024-05-18 07:00] VITALS: BP 139/75
[2024-05-18 07:28] LABS: Hematocrit 40.5 % (39.0-52.0); Hemoglobin 14.8 g/dL (13.0-18.0); Mean Corp Hgb Conc. 36.5 g/dL (33.0-37.0); Mean Corpuscular Hgb 33.5 pg (27.0-31.0); Mean Corpuscular Volume 91.6 fL (80.0-94.0); Mean Platelet Volume 9.9 fL (7.4-10.4); Platelet Count 182 10^3/uL (130-400); Red Blood Cell Count 4.42 10^6/uL (4.70-6.10); Red Cell Dist. Width 13.3 % (11.5-14.5); White Blood Cell Count 12.2 10^3/uL (4.8-10.8)
[2024-05-18 07:29] LABS: INR 1.12; PT 14.7 Sec (11.4-14.6)
[2024-05-18 08:00] LABS: ALT (SGPT) 22 U/L (0-50); AST (SGOT) 28 U/L (17-59); Alkaline Phosphatase 160 U/L (38-126); Blood Urea Nitrogen 13 mg/dl (9-20); Calcium 8.9 mg/dl (8.4-10.2); Carbon Dioxide 23 mmol/L (22-30); Chloride 111 mmol/L (98-107); Direct Bilirubin 0.3 mg/dl (0.0-0.4); Estimated Creatinine Clearance > 125 ml/min; Glucose 96 mg/dl (70-99); Potassium 3.5 mmol/L (3.5-5.1); Sodium 140 mmol/L (135-145); Total Bilirubin 1.3 mg/dl (0.2-1.3); Total Protein 6.3 g/dl (6.3-8.2); eGFR > 60.00
[2024-05-18 08:28] LABS: Glucose - Point of Care 93 mg/dl (70-99)
[2024-05-18 08:35] LABS: % Eosinophils 13.1 % (0-6); % Immature Granulocytes 0.3 % (0-0.5); % Lymphocytes 40.2 % (20.5-51.1); % Neutrophils 31.4 % (42.2-75.2); Absolute Basophils 0.1 10^3/uL (0-0.2); Absolute Eosinophils 1.6 10^3/uL (0-0.7); Absolute Lymphocytes 4.9 10^3/uL (1.2-3.4); Absolute Monocytes 1.7 10^3/uL (0.1-0.6); Absolute Neutrophils 3.8 10^3/uL (1.4-6.5); Nucleated Red Blood Cells % 0 % (-)
[2024-05-18] MEDS: NOVOLOG FLEXPEN-LOW RESISTANCE SC ×2 (08:43→12:00)
[2024-05-18] MEDS: DUPHALAC/CHRONULAC 20 GRAMS PO (09:37)
[2024-05-18] MEDS: HEPARIN 5000 UNITS SC (09:37)
[2024-05-18] MEDS: LOW STRENGTH ASPIRIN 81 MG PO (09:37)
--- NOTE | 2024-05-18 10:20 | W.PN.HOSP.TC ---
Today's Communication/Plan
-
dc to home today
Assessment / Plan
Assessment / Plan
Assessment:
Acute TME
- Suspected related to YAMILETH/volume contraction, possible acute HE
- Hold further Mounjaro.
- IVF support and follow for improvement in metabolic anomalies.
- Follow clinically for improvement - has improved
- CT head in the ED was unremarkable. MRI without CVA.
- Ammonia level elevated; lactulose daily per GI
YAMILETH
- SCr = 1.9 compared to prior baseline of 0.8.
- Likely secondary to GI losses / volume losses + ARB.
- Stop further Mounjaro.
- resume ARB / HCT at discharge
- BMP improved
Diarrhea
- Likely secondary to Mounjaro.
- Hold further doses as noted above.
- Follow for clinical improvement.
- Check stool studies for completeness.
Hypokalemia from diarrhea
- replacement ordered
Leukocytosis
- UA clear
- no chest symptoms
- no fevers
Benign Hypertension
- resume ARB/HCT at discharge
DM-II
- Hold Mounjaro.
- Follow glucose and cover with SSI as needed.
- A1c is 5.4%
- f/u PCP for re-evaluation/alternative management
LUNDBERG / Cirrhosis on CT
- Ammonia level elevated; lactulose daily per GI
- OP eval for Fibroscan
- GI f/u 05/29
Obesity due to excess calories
- Affects all aspects of care.
- Encourage healthy diet and increased activity with goal of weight loss.
DVT Prophylaxis: SC Heparin
Code Status: Full
Anticipated Discharge: Today
Subjective/Interval History
-
Date of Service: May 18, 2024
resting comfortably
no complaints
eager for DC
Objective Data
-
Labs:
Laboratory Results
05/18/24
07:12
WBC 12.2 H
Hgb 14.8
Hct 40.5
Plt Count 182
PT 14.7 H
INR 1.12
Sodium 140
Potassium 3.5
Chloride 111 H
Carbon Dioxide 23
BUN 13
Creatinine 0.7
Glucose 96
Calcium 8.9
Total Bilirubin 1.3
AST 28
ALT 22
Alkaline Phosphatase 160 H
Vital Signs:
Vital Signs
Temp Pulse Resp BP Pulse Ox
98.1 F 78 16 139/75 94
05/18/24 07:00 05/18/24 07:00 05/18/24 07:00 05/18/24 07:00 05/18/24 07:00
I&O
05/17/24 05/18/24 05/19/24
06:59 06:59 06:59
Intake Total 2380 / 2380 960 / 960
Output Total 500 / 500 275 / 275
Balance 1880 / 1880 685 / 685
Physical Exam
-
General: No Apparent Distress
HEENT: Normocephalic and Atraumatic
Respiratory: Negative Wheezes
Cardiac: Regular Rhythm and S1/S2
GI: Soft
Genito-urinary: No Costovertebral Tender
Neuro: AO x 3
Hematologic / Lymphatic: No Lymphadenopathy
Psych: Calm
Data Reviewed
-
Total Time Spent with Patient (in minutes): 41
Labs: Labs Reviewed by me
--- NOTE | 2024-05-18 10:25 | W.DS.TRANS ---
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
-
Discharge Instructions:
Discharge Diagnosis/Procedures TME from YAMILETH, elevated ammonia level,
dehydration
Diet Diabetic, Carb Controlled
Activity As tolerated
Others Tests GI office for Fibroscan for cirrhosis evaluation
Other Services VN
Instructions:
Stand-Alone Forms:
Changes to Home Medications: No
Discharge Medications:
DC Medications w/original date entered in [employer]
lactulose 10 gram/15 mL oral solution 20 g (30 mL) PO DAILY #1,000 mL 05/18/24
losartan 100 mg tablet 100 mg PO DAILY #30 tabs 05/18/24
Home Medication Changes
Pending Results: No
Total time spent discharging patient (in min): 41
[2024-05-18 11:00] VITALS: BP 128/79
[2024-05-18 11:51] LABS: Glucose - Point of Care 106 mg/dl (70-99)
== END 2024-05-18 14:06 | disposition home or self-care (01) | DRG 682 ==
LOC: 4 WEST ACU 23:21
PROVIDERS: Nurse Practitioner Adult Health; ADMITTING PHYSICIAN Hospitalist; ATTENDING PHYSICIAN Internal Medicine; CONSULT PHYSICIAN Internal Medicine Gastroenterology; EMERGENCY PHYSICIAN Emergency Medicine; FAMILY PHYSICIAN Student in an Organized Health Care Education/Training Program
DX: N17.9 Acute kidney failure, unspecified (principal); G92.8 Other toxic encephalopathy; G47.30 Sleep apnea, unspecified; I10 Essential (primary) hypertension; K74.60 Unspecified cirrhosis of liver; K75.81 Nonalcoholic steatohepatitis (NASH); K21.00 Gastro-esophageal reflux disease with esophagitis, without bleeding; E86.0 Dehydration; N40.0 Benign prostatic hyperplasia without lower urinary tract symptoms; E66.09 Other obesity due to excess calories; M06.9 Rheumatoid arthritis, unspecified; E11.9 Type 2 diabetes mellitus without complications; R19.7 Diarrhea, unspecified; K44.9 Diaphragmatic hernia without obstruction or gangrene; K22.2 Esophageal obstruction; E87.6 Hypokalemia; D72.829 Elevated white blood cell count, unspecified; K76.82 Hepatic encephalopathy; K59.00 Constipation, unspecified; Z79.85 Long-term (current) use of injectable non-insulin antidiabetic drugs; Z68.34 Body mass index [BMI] 34.0-34.9, adult; Z80.0 Family history of malignant neoplasm of digestive organs
CPT/HCPCS: 70450; 70551; 80048; 80053; 80076; 81003; 81015; 82140; 82248; 82962; 83036; 84132; 84443; 85025; 85027; 85610; 87045; 87046; 87427; 92526; 92610; 93005; 96360; 96361; 97116; 97163; 97167; 97530; 97535; 99285

== ENCOUNTER → 2024-06-06 08:27 | Outpatient (REF) | payer OTHER, SELFPAY | LOC: MRI 08:27 | PROVIDERS: ATTENDING PHYSICIAN Internal Medicine Gastroenterology; FAMILY PHYSICIAN Student in an Organized Health Care Education/Training Program | DX: K76.0 Fatty (change of) liver, not elsewhere classified (principal) | CPT/HCPCS: 74183; 76391; A9575 ==

== ENCOUNTER 2024-07-02 06:17 | Day surgery (SDC) | payer OTHER, SELFPAY ==
[2024-07-02 09:51] LABS: Glucose - Point of Care 97 mg/dl (70-99)
== END 2024-07-02 11:26 | disposition home or self-care (01) ==
LOC: GI 06:17
PROVIDERS: ATTENDING PHYSICIAN Internal Medicine Gastroenterology; FAMILY PHYSICIAN Student in an Organized Health Care Education/Training Program
DX: K74.60 Unspecified cirrhosis of liver (principal); K22.2 Esophageal obstruction; K44.9 Diaphragmatic hernia without obstruction or gangrene; K31.89 Other diseases of stomach and duodenum
CPT/HCPCS: 43235; 82962